=== PATIENT | male | born 1950 | race Caucasian/White ===

== ENCOUNTER 2016-10-29 | Outpatient (CLI) | payer MEDICARE, OTHER | END 2016-10-29 14:51 | disposition home or self-care (01) | DX: I25.10 Atherosclerotic heart disease of native coronary artery without angina pectoris (principal) ==

== ENCOUNTER 2016-10-29 15:50 | Outpatient (CLI) | payer MEDICARE, OTHER | END 2016-10-29 15:51 | disposition home or self-care (01) | DX: I25.10 Atherosclerotic heart disease of native coronary artery without angina pectoris (principal) ==

== ENCOUNTER 2017-02-05 12:17 | Emergency (ER) | payer MEDICARE, OTHER ==
[2017-02-05] MEDS ORDERED: LORazepam 0.5 MG TABLET PO STA (13:32)
[2017-02-05] MEDS ORDERED: LORazepam 0.5 MG TABLET ONE (14:29)
== END 2017-02-05 15:36 | disposition home or self-care (01) ==
DX: F32.9 Major depressive disorder, single episode, unspecified (principal); F41.9 Anxiety disorder, unspecified; I11.0 Hypertensive heart disease with heart failure; I50.9 Heart failure, unspecified; I48.91 Unspecified atrial fibrillation; Z79.01 Long term (current) use of anticoagulants; E11.9 Type 2 diabetes mellitus without complications; Z79.84 Long term (current) use of oral hypoglycemic drugs
CPT/HCPCS: 36415; 80053; 80306; 80307; 81001; 83690; 85025; 99283; A9270; G0480

== ENCOUNTER 2017-03-04 11:31 | Outpatient (CLI) | payer OTHER, MEDICARE | END 2017-03-04 11:32 | disposition critical access hospital (66) | LOC: EMS 11:31 | PROVIDERS: ATTEND Surgery | DX: M54.5 Low back pain (principal); R41.0 Disorientation, unspecified; V89.2XXA Person injured in unspecified motor-vehicle accident, traffic, initial encounter; Y92.414 Local residential or business street as the place of occurrence of the external cause | CPT/HCPCS: A0425; A0429 ==

== ENCOUNTER 2017-03-04 11:34 | Emergency (ER) | payer OTHER, MEDICARE ==
--- NOTE | 2017-03-04 13:06 | CT Preliminary Report ---
Exam: CT Head W/O IMPRESSION: 1. Generalized mild age-related cortical atrophic changes without evidence of acute intracranial abno rmality. 2. Right maxillary sinus disease. Correlate for acute sinusitis. [facility] SITE ID: [id number]
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
--- NOTE | 2017-03-04 13:11 | CT Preliminary Report ---
Exam: CT Cervical Spine W/O IMPRESSION: 1. No acute osseous abnormality in the cervical spine. 2. Multilevel cervical spondylosis, most pronounced at C5-C6 and C6-C7, not significantly changed fro m prior. [facility] SITE ID: [id number]
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
[2017-03-04 13:56] LABS: BILIRUBIN,URINE NEGATIVE (NEGATIVE)
[2017-03-04 13:58] LABS: UA w/ MICROSCOPIC CHARGE YES
[2017-03-04 14:07] LABS: UR CULTURE IF IND NOT INDICATED; WBC,URINE 0-3 /HPF (0-3)
[2017-03-04 15:50] LABS: BASOPHILS # (AUTO) 0.1 10^3/uL (0.0-0.1); BASOPHILS % (AUTO) 0.7 %; EOSINOPHILS # (AUTO) 0.2 10^3/uL (0.0-0.7); EOSINOPHILS % (AUTO) 1.9 %; HCT - HEMATOCRIT 36.4 % (42.0-52.0); HGB - HEMOGLOBIN 11.8 g/dL (14.0-18.0); LYMPHOCYTES # (AUTO) 0.9 10^3/uL (1.5-3.5); LYMPHOCYTES % (AUTO) 10.9 %; MEAN CORPUSCULAR HEMOGLOBIN 27.3 pg (27.0-31.0); MEAN CORPUSCULAR HGB CONC 32.5 g/dL (32.0-36.0); MEAN PLATELET VOLUME 9.2 fL (7.4-11.4); MONOCYTES # (AUTO) 0.7 10^3/uL (0.0-1.0); MONOCYTES % (AUTO) 8.9 %; NEUTROPHILS # (AUTO) 6.4 10^3/uL (1.5-6.6); NEUTROPHILS % (AUTO) 77.6 %; RED BLOOD COUNT 4.34 10^6/uL (4.70-6.10); RED CELL DISTRIBUTION WIDTH 16.1 % (12.0-15.0); UNCORRECTED WHITE BLOOD COUNT 8.2 x10^3/uL; WHITE BLOOD COUNT 8.2 x10^3/uL (4.8-10.8)
[2017-03-04 16:02] LABS: BILIRUBIN,TOTAL 0.4 mg/dL (0.2-1.0); CALCIUM 8.5 mg/dL (8.5-10.3); CREATININE 1.4 mg/dL (0.6-1.2); POTASSIUM 4.7 mmol/L (3.5-5.0); TOTAL PROTEIN 6.7 g/dL (6.7-8.2)
[2017-03-04 16:12] LABS: PLATELET ESTIMATE, MANUAL NORMAL (130-450,000) (NORMAL); PLATELET MORPHOLOGY 1+ LARGE PLATELETS (NORMAL)
[2017-03-04] MEDS ORDERED: IOPAMIDOL-300 100 ML VIAL IVP ONE (16:49)
--- NOTE | 2017-03-04 17:21 | CT Preliminary Report ---
Exam: CT Abdomen/Pelvis W/ IMPRESSION: 1. No definite acute disease. 2. Cholelithiasis. 3. Moderate diverticulosis and other chronic or incidental findings. [facility] SITE ID: [id number]
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
[2017-03-04] MEDS ORDERED: SODIUM CHLORIDE 0.9% 1,000 ML IV ONE (17:41)
[2017-03-04 18:14] VITALS: BP 134/98
[2017-03-04] MEDS ORDERED: HYDROcod/ACETAM 5/325 MG TABLET PO STA (18:34)
[2017-03-04] MEDS ORDERED: HYDROcod/ACETAM 5/325 MG TABLET ONE (18:39)
== END 2017-03-04 18:49 | disposition home or self-care (01) ==
LOC: ED 11:34
DX: S16.1XXA Strain of muscle, fascia and tendon at neck level, initial encounter (principal); S60.512A Abrasion of left hand, initial encounter; S60.511A Abrasion of right hand, initial encounter; V58.5XXA Driver of pick-up truck or van injured in noncollision transport accident in traffic accident, initial encounter; Y92.488 Other paved roadways as the place of occurrence of the external cause; E11.65 Type 2 diabetes mellitus with hyperglycemia; Z79.84 Long term (current) use of oral hypoglycemic drugs; I11.0 Hypertensive heart disease with heart failure; I50.9 Heart failure, unspecified; E78.00 Pure hypercholesterolemia, unspecified; I25.10 Atherosclerotic heart disease of native coronary artery without angina pectoris; Z95.1 Presence of aortocoronary bypass graft; I48.91 Unspecified atrial fibrillation; Z86.010 Personal history of colon polyps; M19.90 Unspecified osteoarthritis, unspecified site
CPT/HCPCS: 36415; 70450; 72125; 74177; 80053; 81001; 83690; 85025; 99284; A9270; Q9967; 81003; 87086

== ENCOUNTER 2017-03-16 16:24 | Outpatient (CLI) | payer MEDICARE, OTHER ==
--- NOTE | 2017-03-16 16:52 | XRAY Preliminary Report ---
Exam: XR Chest 2 View PA/LAT IMPRESSION: Normal heart size and clear lungs. [facility] SITE ID: [id number]
--- NOTE | 2017-03-16 16:54 | XRAY Report ---
EXAM: CHEST RADIOGRAPHY EXAM DATE: 03/16/2017 04:46 PM. CLINICAL HISTORY: Productive cough for one month. Dyspnea. COMPARISON: 08/23/2016. TECHNIQUE: 2 views. FINDINGS: Lungs/Pleura: No focal opacities evident. No pleural effusion. No pneumothorax. Normal volumes. Mediastinum: Prior bypass. Heart and mediastinal contours are unremarkable. Other: Degenerative changes of the acromioclavicular joints. No compression fractures. IMPRESSION: Normal heart size and clear lungs. [facility] Referring Provider Line: [phone] SITE ID: [id number]
== END 2017-03-16 16:25 | disposition home or self-care (01) ==
LOC: DI 16:24
PROVIDERS: ATTEND Internal Medicine
DX: R05 Cough (principal); R06.00 Dyspnea, unspecified
CPT/HCPCS: 71020

== ENCOUNTER 2017-05-15 11:24 | Outpatient (CLI) | payer MEDICARE, OTHER | END 2017-05-15 11:25 | disposition short-term general hospital (02) | LOC: EMS 11:24 | PROVIDERS: ATTEND Surgery | DX: R06.02 Shortness of breath (principal) | CPT/HCPCS: A0425; A0427; A0888 ==

== ENCOUNTER 2017-07-06 13:03 | Outpatient (CLI) | payer MEDICARE, OTHER | END 2017-07-06 13:04 | disposition home or self-care (01) | LOC: SC 13:03 | PROVIDERS: ATTEND Specialist | DX: G47.30 Sleep apnea, unspecified (principal); R53.83 Other fatigue; R06.83 Snoring; G47.00 Insomnia, unspecified; I48.91 Unspecified atrial fibrillation | CPT/HCPCS: 99205; G0463; 99212 ==

== ENCOUNTER 2017-08-04 19:28 | Outpatient (CLI) | payer MEDICARE, OTHER | END 2017-08-04 19:29 | disposition short-term general hospital (02) | LOC: EMS 19:28 | PROVIDERS: ATTEND Surgery | DX: R55 Syncope and collapse (principal) | CPT/HCPCS: A0425; A0429 ==

== ENCOUNTER 2017-08-15 13:53 | Outpatient (CLI) | payer MEDICARE, OTHER | END 2017-08-15 13:54 | disposition EMS.NT | LOC: EMS 13:53 | PROVIDERS: ATTEND Surgery | DX: Z03.89 Encounter for observation for other suspected diseases and conditions ruled out (principal) ==

== ENCOUNTER 2017-08-20 09:45 | Outpatient (CLI) | payer MEDICARE, OTHER | END 2017-08-20 09:46 | disposition short-term general hospital (02) | LOC: EMS 09:45 | PROVIDERS: ATTEND Surgery | DX: R06.02 Shortness of breath (principal) | CPT/HCPCS: A0425; A0429; A0888 ==

== ENCOUNTER 2017-09-13 12:22 | Outpatient (CLI) | payer MEDICARE, OTHER | END 2017-09-13 12:23 | disposition short-term general hospital (02) | LOC: EMS 12:22 | PROVIDERS: ATTEND Surgery | DX: R06.00 Dyspnea, unspecified (principal); R52 Pain, unspecified | CPT/HCPCS: A0425; A0427; A0888 ==

== ENCOUNTER 2017-12-06 13:09 | Outpatient (CLI) | payer MEDICARE, OTHER | END 2017-12-06 23:59 | disposition E | LOC: EMS 13:09 | PROVIDERS: ATTEND Surgery ==